=== PATIENT | female | born 1950 | race Caucasian/White ===

== ENCOUNTER 2019-07-08 07:35 | Outpatient (CLI) | payer BC, SELFPAY ==
--- NOTE | ~2019-07-08 | PE_ITS ---
EXAMINATION: PET skull to mid thigh DATE: 07/08/2019 10:39 INDICATION: Malignant neoplasm of the right breast. Patient underwent bilateral mastectomy with flap reconstruction in May 2019. Previous imaging reportedly demonstrated axillary lymphadenopathy an d a concerning internal mammary lymph node TECHNIQUE: Blood glucose level was 108 mg/dL. 10.095 mCi of 18-fluorodeoxyglucose (18-FDG) was admini stered i.v. Low dose computed tomography (CT) images were acquired from the base of the brain to the proximal thighs for attenuation correction and anatomic localization. Positron emission tomography (P ET) images were acquired in the same distribution beginning 69 minutes after injection. COMPARISON: None FINDINGS: Head/neck: No abnormal FDG uptake is identified. Physiologic uptake in the oral cavity and vocal cord s without suspicious CT correlate is noted. There are no pathologically enlarged neck lymph nodes. Chest: A right internal jugular Port-A-Cath ends with its tip in the midsuperior vena cava. There are changes of bilateral mastectomy. Minimal low level FDG uptake is seen in the reconstructions without evidence of focal activity to suggest recurrent malignancy. There is an approximately 3.1 x 1.5 cm a octavio of fluid density in the left axilla with low-level FDG uptake, also likely postoperative. No susp icious internal mammary lymph node is identified. The lungs are free of acute opacities. The heart si ze is normal. There is a group of tree-in-bud opacities in right upper lobe. No pleural effusion or p neumothorax is identified. Abdomen/pelvis/proximal thighs: Physiologic FDG activity is present in the bowel and urinary tract. N o abnormal FDG uptake is identified. The liver, spleen, pancreas, gallbladder, and adrenal glands are normal. The kidneys are unremarkable. No pathologically enlarged abdominal or pelvic lymph nodes are identified. There is no free intraperitoneal gas or evidence of bowel obstruction. Musculoskeletal: No abnormal FDG uptake is identified. IMPRESSION: 1. Changes of bilateral mastectomy, flap reconstruction, and axillary lymph node dissection without s uspicious FDG uptake identified. 2. Grouped tree-in-bud opacities of the right upper lobe, likely infectious or inflammatory. Reviewed, dictated and finalized at location A. ING SPECIALIST IMPRESSION: 1. Changes of bilateral mastectomy, flap reconstruction, and axillary lymph nod e dissection without suspicious FDG uptake identified. 2. Grouped tree-in-bud opacities of the right upper lobe, likely infectious or inflammatory.
[2019-07-08 08:03] LABS: Glucose Point of Care 108 (65-105)
== END 2019-07-08 07:36 | disposition home or self-care (01) ==
LOC: ANHIMG 07:42
PROVIDERS: PCP Internal Medicine; Visit Provider Internal Medicine Medical Oncology
DX: C50.911 Malignant neoplasm of unspecified site of right female breast (principal); Z90.13 Acquired absence of bilateral breasts and nipples
CPT/HCPCS: 78815; A9552

== ENCOUNTER 2020-05-02 07:32 | Outpatient (CLI) | payer BC, SELFPAY ==
--- NOTE | ~2020-05-02 | PE_ITS ---
EXAMINATION: PET skull to mid thigh DATE: 05/02/2020 11:26 INDICATION: Breast cancer TECHNIQUE: Blood glucose level was 120 mg/dL. 10.341 mCi of 18-fluorodeoxyglucose (18-FDG) was admini stered i.v. Low dose computed tomography (CT) images were acquired from the base of the brain to the proximal thighs for attenuation correction and anatomic localization. Positron emission tomography (P ET) images were acquired in the same distribution beginning 53 minutes after injection. The dose-isabelle th product (DLP) was 310.14 mGy-cm. COMPARISON: 07/18/2019 FINDINGS: Head/neck: No abnormal FDG uptake is identified. Physiologic uptake in the oral cavity and vocal cord s without suspicious CT correlate is again noted. No cervical lymphadenopathy is identified. Chest: There are changes of bilateral mastectomy with flap reconstructions. There is been interval de crease in size of a small area of fluid attenuation and FDG uptake in the region of the left axilla. No suspicious abnormal FDG uptake is identified. There are no pathologically enlarged thoracic lymph nodes. The heart size is normal. A right internal jugular Port-A-Cath ends with its tip in the midsup erior vena cava. Previously described tree-in-bud opacities of the right upper lobe have resolved, co nsistent with resolved infection/inflammation. Abdomen/pelvis/proximal thighs: Physiologic FDG activity is present in the bowel and urinary tract. N o abnormal FDG uptake is identified. The liver, spleen, pancreas, gallbladder, and adrenal glands are normal. The kidneys are unremarkable. No pathologically enlarged abdominal or pelvic lymph nodes are identified. There is no free intraperitoneal gas or evidence of bowel obstruction. Musculoskeletal: No abnormal FDG uptake is identified. There is moderate spondylosis of the cervical and thoracic spine. IMPRESSION: 1. Stable changes of bilateral mastectomy, flap reconstruction, and axillary lymph node dissection wi thout suspicious FDG uptake identified. Reviewed, dictated and finalized at location A. PROJECT MANAGER IMPRESSION: 1. Stable changes of bilateral mastectomy, flap reconstruction, and axillary ly mph node dissection without suspicious FDG uptake identified.
[2020-05-02 07:58] LABS: Glucose Point of Care 120 (65-105)
== END 2020-05-02 07:33 | disposition home or self-care (01) ==
LOC: ANHIMG 07:40
PROVIDERS: PCP Internal Medicine; Visit Provider Internal Medicine Medical Oncology
DX: C50.912 Malignant neoplasm of unspecified site of left female breast (principal); Z17.1 Estrogen receptor negative status [ER-]; Z90.13 Acquired absence of bilateral breasts and nipples
CPT/HCPCS: 78815; A9552

== ENCOUNTER 2020-10-09 07:58 | Outpatient (CLI) | payer BC, SELFPAY ==
--- NOTE | ~2020-10-09 | CT_ITS ---
EXAMINATION: CT chest abdomen pelvis w con DATE: 10/09/2020 08:39 INDICATION: History of breast cancer TECHNIQUE: Transaxial computed tomographic images of the chest, abdomen, and pelvis were obtained aft er the administration of 100 cc of Omnipaque 350 intravenous contrast. The dose-length product (DLP) was 402.52 mGy-cm. Automated exposure control and iterative reconstruction technique were employed. COMPARISON: PET/CT, 05/02/2020 FINDINGS: CHEST CT: The lungs are free of acute opacities. There is no pleural effusion or pneumothorax. There are change s of bilateral mastectomy. No pathologically enlarged thoracic lymph nodes are identified. The heart size is normal. Calcified coronary artery atherosclerosis is noted. There are bridging osteophytes at multiple levels in the spine, consistent with diffuse idiopathic skeletal hyperostosis (DISH). A rig ht-sided Port-A-Cath has been removed. ABDOMEN/PELVIS CT: The liver, spleen, pancreas, gallbladder, and adrenal glands are normal. The kidneys are unremarkable . No pathologically enlarged abdominal or pelvic lymph nodes are identified. There is no free intrape ritoneal gas or evidence of bowel obstruction. The appendix is normal. A small fat-containing umbilic al hernia is noted. There is moderate lumbar spondylosis. IMPRESSION: 1. No evidence of metastatic disease. Reviewed, dictated and finalized at location B.
[2020-10-09 08:24] LABS: Estimated Glomerular Filt Rate > 60
== END 2020-10-09 07:59 | disposition home or self-care (01) ==
LOC: ANHIMG 08:02
PROVIDERS: PCP Internal Medicine; Visit Provider Internal Medicine Medical Oncology
DX: C50.911 Malignant neoplasm of unspecified site of right female breast (principal); Z17.0 Estrogen receptor positive status [ER+]; C50.912 Malignant neoplasm of unspecified site of left female breast; Z17.1 Estrogen receptor negative status [ER-]; I70.0 Atherosclerosis of aorta
CPT/HCPCS: 71260; 74177; Q9967

== ENCOUNTER 2021-05-04 10:31 | Outpatient (CLI) | payer MEDICARE, SELFPAY ==
--- NOTE | ~2021-05-04 | CT_ITS ---
EXAMINATION: CT diagnostic chest w con DATE: 05/04/2021 11:09 INDICATION: Malignant neoplasm of the right breast TECHNIQUE: Transaxial computed tomographic images of the chest were obtained after the administration of 75 cc of Omnipaque 350 intravenous contrast. The dose-length product (DLP) was 191.86 mGy-cm. Ite rative reconstruction was used. COMPARISON: 10/09/2020 FINDINGS: There are changes of bilateral mastectomy and axillary lymph node dissection. The lungs are free of acute opacities. A stable 2 mm nodule of the right lung apex is consistent with old granulom atous disease. There is no pleural effusion or pneumothorax. No pathologically enlarged thoracic lymp h nodes are identified. The heart size is normal. There are bridging osteophytes at multiple levels i n the spine, consistent with diffuse idiopathic skeletal hyperostosis (DISH). IMPRESSION: 1. No evidence of metastatic disease. Reviewed, dictated and finalized at location B.
[2021-05-04 11:01] LABS: Estimated Glomerular Filt Rate > 60
== END 2021-05-04 10:32 | disposition home or self-care (01) ==
LOC: ANHIMG 10:35
PROVIDERS: PCP Internal Medicine; Visit Provider Internal Medicine Medical Oncology
DX: C50.911 Malignant neoplasm of unspecified site of right female breast (principal); Z17.0 Estrogen receptor positive status [ER+]
CPT/HCPCS: 71260; Q9967

== ENCOUNTER 2021-08-06 10:46 | Outpatient (CLI) | payer MEDICARE, SELFPAY ==
--- NOTE | ~2021-08-06 | CT_ITS ---
EXAMINATION:CT diagnostic chest w con DATE: 08/06/2021 11:21 INDICATION: Malignant neoplasm of right breast. TECHNIQUE: Computed tomography (CT) of the chest was performed with 75 mL Omnipaque 350 intravenous c ontrast. Automated exposure control and iterative reconstruction technique were employed. The dose-le ngth product (DLP) was 151.67 mGy-cm. COMPARISON: Chest CT 05/04/2021 FINDINGS: The lungs demonstrate mild atelectasis. No pleural effusion. No pleural effusion. The heart size is normal. No pericardial effusion. There are surgical clips in the axillae. There are surgical clips in left anterior chest wall. There are bilateral mastectomies. There are bridging endplate ost eophytes at multiple levels in the spine, consistent with diffuse idiopathic skeletal hyperostosis (D MALCOLM). IMPRESSION: 1. No evidence of metastatic disease. Reviewed, dictated and finalized at location E. E TESTER
[2021-08-06 11:17] LABS: Estimated Glomerular Filt Rate > 60
== END 2021-08-06 10:47 | disposition home or self-care (01) ==
PROVIDERS: PCP Internal Medicine; Visit Provider Internal Medicine Medical Oncology
DX: C50.911 Malignant neoplasm of unspecified site of right female breast (principal); Z17.0 Estrogen receptor positive status [ER+]
CPT/HCPCS: 71260; Q9967

== ENCOUNTER 2022-04-05 08:28 | Outpatient (CLI) | payer MEDICARE, BC, SELFPAY ==
--- NOTE | ~2022-04-05 | CT_ITS ---
EXAMINATION:CT diagnostic chest w con DATE: 04/05/2022 09:36 INDICATION: Malignant neoplasm of left breast. TECHNIQUE: Computed tomography (CT) of the chest was performed with 75 mL Omnipaque 350 intravenous c ontrast. Automated exposure control and iterative reconstruction technique were employed. The dose-le ngth product (DLP) was 140.14 mGy-cm. COMPARISON: Chest CT 08/06/2021 FINDINGS: There is mild dependent atelectasis bilaterally. No pleural effusion. The heart size is nor mal. There are coronary artery calcifications. No pericardial effusion. There are surgical clips in t he axillae bilaterally. There are no pathologically enlarged lymph nodes. There are bilateral mastect omies. There is a surgical clip in left anterior chest wall. There are bridging endplate osteophytes at multiple levels in the spine, consistent with diffuse idiopathic skeletal hyperostosis (DISH). The re is kyphosis of thoracic spine. There is severe cervical spondylosis. IMPRESSION: 1. No evidence of metastatic disease. Reviewed, dictated and finalized at location B.
--- NOTE | ~2022-04-05 | DEXA_ITS ---
Bone Density Report Name: BHARGAV STORY Age: 71 Sex: Female Ethnicity: White Date of : 1950 Indication: postmenopausal; screening for osteoporosis; cancer; Referring Provider: JETHRO, MISSAEL Ojeda Study: Bone densitometry was performed. Exam Date: April 05, 2022 Accession number: [id number] Bone Density: Region BMD T-score Z-score Classification AP Spine(L1, L2, L3) 1.039 0.2 2.4 Normal Femoral Neck (Left) 0.641 -1.9 0.1 Osteopenia Total Hip (Left) 0.773 -1.4 0.3 Osteopenia Femoral Neck (Right) 0.637 -1.9 0.1 Osteopenia Total Hip (Right) 0.743 -1.6 0.1 Osteopenia Total Hip Mean 0.758 -1.5 0.2 Osteopenia World Health Organization criteria for BMD impression classify patients as: Normal (T-score at or above -1.0), Osteopenia (T-score between -1.0 and -2.5), or Osteoporosis (T-score at or below -2.5). 10-year Fracture Risk(1): Major Osteoporotic Fracture 12% Hip Fracture 2.6% Reported Risk Factors: [place] (), Neck BMD=0.641, BMI=25.4 (1) FRAX(R) Version 3.08. Fracture probability calculated for an untreated patient. Fracture probability may be lower if the patient has received treatment. Clinical Information Provided by Patient: Has the following medical conditions: Cancer Patient maximum height was 60 Menopause Age: 48 No regular weight bearing exercise Onset of menses at age 10 Number of children 2 Impression: The patient has low bone mass, based on the Left Femoral Neck T-score. The patient has an estimated ten-year risk of hip fracture of 2.6% and an estimated ten-year risk of major fracture of 12%, based on the WHO FRAX algorithm. Discussion: BONE DENSITY IS LOW AT ONE OR MORE SKELETAL SITES. This patient's lowest T-score is low at one or more skeletal sites. It meets the World Health Organization's (WHO) criteria for ?low bone mass? (T-score between -1.0 and -2.5). The patient's 10-year risk of fracture as calculated by FRAX is less than the threshold where pharmacological therapy is recommended by the National Osteoporosis Foundation (NOF). However, all treatment decisions require clinical judgment and consideration of individual patient factors, including patient preferences, comorbidities, previous drug use, risk factors not captured in the FRAX model (e.g., frailty, falls, vitamin D deficiency, increased bone turnover, interval significant decline in bone density) and possible under or overestimation of fracture risk by FRAX. The patient should follow a healthful lifestyle (good nutrition with adequate calcium and vitamin D, and appropriate weight-bearing exercise). Follow-Up: Consider repeating this study in 2 to 3 years to reassess this patient's status, or sooner if there is some new clinical indication. Reported by: [facility] on 04/05/2022 9:03:00 AM.
[2022-04-05 09:32] LABS: Estimated Glomerular Filt Rate > 60
== END 2022-04-05 08:29 | disposition home or self-care (01) ==
PROVIDERS: PCP Internal Medicine; Visit Provider Internal Medicine Medical Oncology
DX: C50.919 Malignant neoplasm of unspecified site of unspecified female breast (principal); Z78.0 Asymptomatic menopausal state; Z17.1 Estrogen receptor negative status [ER-]; M85.851 Other specified disorders of bone density and structure, right thigh; M85.852 Other specified disorders of bone density and structure, left thigh; I25.10 Atherosclerotic heart disease of native coronary artery without angina pectoris; Z90.13 Acquired absence of bilateral breasts and nipples; M47.812 Spondylosis without myelopathy or radiculopathy, cervical region
CPT/HCPCS: 71260; 77080; Q9967

== ENCOUNTER 2022-10-04 12:18 | Outpatient (CLI) | payer MEDICARE, SELFPAY ==
--- NOTE | ~2022-10-04 | CT_ITS ---
EXAMINATION: CT diagnostic chest w con DATE: 10/04/2022 13:55 INDICATION: History of left breast cancer TECHNIQUE: Transaxial computed tomographic images of the chest were obtained after the administration of 75 cc of Omnipaque 350 intravenous contrast. The dose-length product (DLP) was 186.51 mGy-cm. Ite rative reconstruction was used. COMPARISON: 04/05/2022 FINDINGS: There are changes of bilateral mastectomy and axillary lymph node dissection. There is mild dependent atelectasis. No pleural effusion or pneumothorax. No pathologically enlarged thoracic lymp h nodes are identified. The heart size is normal. There is a small sliding hiatal hernia. There are b ridging osteophytes at multiple levels in the spine, consistent with diffuse idiopathic skeletal hype rostosis (DISH). IMPRESSION: 1. No evidence of metastatic disease. Reviewed, dictated and finalized at location A.
== END 2022-10-04 12:19 | disposition home or self-care (01) ==
PROVIDERS: PCP Internal Medicine; Visit Provider Internal Medicine Medical Oncology
DX: C50.912 Malignant neoplasm of unspecified site of left female breast (principal)
CPT/HCPCS: 71260; Q9967

== ENCOUNTER 2023-04-04 07:25 | Outpatient (CLI) | payer MEDICARE, SELFPAY ==
--- NOTE | ~2023-04-04 | CT_ITS ---
Clinical Indication: Breast cancer CT Scan of the Chest with Contrast: Technique: Contiguous sections were acquired throughout the chest after intravenous administration of 75 cc of Omnipaque 350. Dose reduction technique was used on this scan by utilizing automated exposu re control and iterative reconstruction technique. The dose-length product (DLP) was 418.59 mGy-cm. COMPARISON: 10/04/2022 Findings: There is no evidence of any significant mediastinal, hilar or axillary lymphadenopathy. Mediastinal s oft tissues and vascular structures are unremarkable. Evidence of probable bilateral mastectomy with surgical clips the bilateral axillary regions. There is no evidence of pleural or pericardial effusion. The lungs are clear. No pulmonary nodules or infiltrates are noted. Images through the upper abdomen reveal no abnormalities. Impression: No evidence for active malignancy or metastatic disease. Prior bilateral mastectomy. Reviewed, dictated and finalized at location . Impression: No evidence for active malignancy or metastatic disease. Prior bilateral mastectomy.
[2023-04-04 07:52] LABS: Estimated Glomerular Filt Rate > 60
== END 2023-04-04 07:26 | disposition home or self-care (01) ==
PROVIDERS: PCP Internal Medicine; Visit Provider Internal Medicine Medical Oncology
DX: C50.912 Malignant neoplasm of unspecified site of left female breast (principal); Z17.1 Estrogen receptor negative status [ER-]; Z90.13 Acquired absence of bilateral breasts and nipples
CPT/HCPCS: 71260; Q9967

== ENCOUNTER 2023-10-03 06:33 | Outpatient (CLI) | payer MEDICARE, SELFPAY ==
--- NOTE | ~2023-10-03 | CT_ITS ---
EXAMINATION:CT diagnostic chest w con DATE: 10/03/2023 07:20 INDICATION: Malignant neoplasm of left breast. TECHNIQUE: Computed tomography (CT) of the chest was performed with 75 mL Omnipaque 350 intravenous c ontrast. Automated exposure control and iterative reconstruction technique were employed. The dose-le ngth product (DLP) was 149.07 mGy-cm. COMPARISON: Chest CT 04/04/2023 FINDINGS: The lungs demonstrate mild atelectasis. There is a stable 2 mm nodule in right upper lobe, likely benign. No pleural effusion. The heart size is normal. There are coronary artery calcification s. No pericardial effusion. There are surgical changes in left breast and left axilla and right axill a. There are bridging endplate osteophytes at multiple levels in the spine, consistent with diffuse i diopathic skeletal hyperostosis (DISH). There is kyphosis of thoracic spine. IMPRESSION: 1. No evidence of malignancy. Reviewed, dictated and finalized at location A.
[2023-10-03 07:12] LABS: Estimated Glomerular Filt Rate > 60
== END 2023-10-03 06:34 | disposition home or self-care (01) ==
PROVIDERS: PCP Internal Medicine; Visit Provider Internal Medicine Medical Oncology
DX: C50.912 Malignant neoplasm of unspecified site of left female breast (principal); Z17.1 Estrogen receptor negative status [ER-]
CPT/HCPCS: 71260; Q9967

== ENCOUNTER 2024-04-02 06:50 | Outpatient (CLI) | payer MEDICARE, SELFPAY ==
--- NOTE | ~2024-04-02 | CT_ITS ---
Clinical Indication: Breast cancer CT Scan of the Chest with Contrast: Technique: Contiguous sections were acquired throughout the chest after intravenous administration of 75 cc of Omnipaque 350. Dose reduction technique was used on this scan by utilizing automated exposu re control and iterative reconstruction technique. The dose-length product (DLP) was 163.79 mGy-cm. COMPARISON: 10/03/2023 Findings: There is no evidence of any significant mediastinal, hilar or axillary lymphadenopathy. There is no f illing defect in the pulmonary arterial tree to suggest pulmonary embolus. There is no evidence of ao rtic dissection or aneurysm. Small pericardial effusion noted. No pleural effusions. The lungs are clear. No pulmonary nodules or infiltrates are noted. Images through the upper abdomen reveal probable diffuse hepatic steatosis and probable duodenal dive rticulum. Impression: No evidence of metastatic disease. Clear lungs. Reviewed, dictated and finalized at [facility]. Impression: No evidence of metastatic disease. Clear lungs.
[2024-04-02 07:17] LABS: Estimated Glomerular Filt Rate > 60
== END 2024-04-02 06:51 | disposition home or self-care (01) ==
PROVIDERS: PCP Internal Medicine; Visit Provider Internal Medicine Medical Oncology
DX: C50.912 Malignant neoplasm of unspecified site of left female breast (principal); Z17.1 Estrogen receptor negative status [ER-]
CPT/HCPCS: 71260; Q9967

== ENCOUNTER 2024-09-28 06:37 | Outpatient (CLI) | payer MEDICARE, SELFPAY ==
--- NOTE | ~2024-09-28 | CT_ITS ---
Clinical Indication: Breast cancer restaging CT Scan of the Chest with Contrast: Technique: Contiguous sections were acquired throughout the chest after intravenous administration of 75 cc of Omnipaque 350. Dose reduction technique was used on this scan by utilizing automated exposu re control and iterative reconstruction technique. The dose-length product (DLP) was 134.12 mGy-cm. COMPARISON: 04/02/2024 Findings: There is no evidence of any significant mediastinal, hilar or axillary lymphadenopathy. There is no f illing defect in the pulmonary arterial tree to suggest pulmonary embolus. There is no evidence of ao rtic dissection or aneurysm. There is no evidence of pleural or pericardial effusion. The lungs are clear. No pulmonary nodules or infiltrates are noted. Images through the upper abdomen reveal no abnormalities. Impression: No evidence of metastatic disease in the chest. Reviewed, dictated and finalized at [facility]. Impression: No evidence of metastatic disease in the chest.
--- OUTSIDE RECORDS SUMMARY | 2024-09-28 06:40 | XMS_ITS ---
Author Organization [facility] Healthcare Address [address] [place] [id number] Care Team Providers Care Feather Cutting Machine Feeder Name Role Phone Dima Barber DO Unavailable [phone] Pietro Scott MD Unavailable [phone] Joe Li MD Primary Care Provider [phone] Active Problems Problem Noted Date Diagnosed Date Metastatic breast cancer 05/01/2020 Encounter for management of implanted device 06/2018 Malignant neoplasm of left b reast in female, estrogen receptor negative 11/19/2018 Cancer Staging:Clinical stage from 11/20/2018:Stage IIIC(cT2, cN3b, cM0, G3, ER-, ND-, HER2-) - Signed by Dima Barber DO on 11/22/2018 Malignant neoplasm of right breast in female, estrogen receptor positive 11/19/2018 Cancer Staging:Clinical stage from 11/20/2018:Stage IA(cT1b, cN0(f), cM0, G1, ER+, ND+, HER2-) - Signed by Dima Barber DO on 11/22/2018 Current Treatment and Therapy Plans No current plan information found. Past Treatment and Therapy Plans Oncology Chemotherapy Treatment Plan Name Start Date Discontinue Date Treatment Medications Discontinue Reason Plan Provider Cycles Dose-Dense AC: DOXOrubicin (ADRIAMYCIN) / Cyclophosphamide 14 Day Cycles followed by: Dose-Dense PACLItaxel 14 Day Cycles - Breast 11/27/19 19 05/03/2019 cycloPHOSphamide (CYTOXAN) IVPB (vial 20 mg/mL) ([id number])DOXOrubicin (ADRIAMYCIN) 2 mg/mLPACLitaxel (TAXOL)PACLItaxel (TAXOL) IVPB in 500 mL Therapy Complete Elisabeth, Dima L., DO 8 of 8 cycles started Lifetime Dose Tracking * Chemical Lifetime Dose Automatic Entry Manual Entr y doxorubicin 242.637 mg/m2 (298.8 mg) 242.637 mg/m2 (298.8 mg) 0 mg/m2 (0 mg) cyclophosphamide 2,426.371 mg/m2 (2,988 mg) 2,426.371 mg/m2 (2,988 mg) 0 mg/m2 (0 mg) doxorubicin isotoxic equivalent (Please manually verify calculation) 242.637 mg/m2 (298.8 mg) 242.637 mg/m2 (298.8 mg) 0 mg/m2 (0 mg) Resolved Problems Problem Noted Date Diagnosed Date Resolved Date Persons encountering health services in other specified circumstances 11/24/2018 09/06/2020
--- OUTSIDE RECORDS SUMMARY | 2024-09-28 06:40 | XMS_ITS | Referral Summary ---
Author Organization [facility] Healthcare Address [address] [place] [address] Care Team Providers Care Call Worker Person Name Role Phone Dima Barber DO Unavailable [phone] Pietro Scott MD Unavailable [phone] Joe Li MD Primary Care Provider + [phone] Encounters Date Type Department Care Team Description 07/22/2024 Orders Only [facility] [address] [place] [address] Unknown, Notinfile from Last 3 Months Allergies No known active allergies Medications aspirin 81 mg chewable tablet Take by mouth daily Active multivit with minerals/lutein (MULTIVITAMIN 50 PLUS ORAL) multivitamin Act delfino rosuvastatin (CRESTOR) 40 mg tablet 1 tablet (40 mg total) 1 Active metFORMIN (GLUCOPHAGE) 500 mg tablet Take 1 tablet (500 mg total) by mouth daily 4 Active clopidogreL (PLAVIX) 75 mg tablet Take 1 tablet (75 mg total) by mouth daily 4 Active Active Problems Problem Noted Date Diagnosed Date Metastatic breast cancer 05/01/2020 Encounter for management of implanted device 06/2018 Malignant neoplasm of left b reast in female, estrogen receptor negative 11/19/2018 Cancer Staging:Clinical stage from 11/20/2018:Stage IIIC(cT2, cN3b, cM0, G3, ER-, TX-, HER2-) - Signed by Dima Barber DO on 11/22/2018 Malignant neoplasm of right breast in female, estrogen receptor positive 11/19/2018 Cancer Staging:Clinical stage from 11/20/2018:Stage IA(cT1b, cN0(f), cM0, G1, ER+, TX+, HER2-) - Signed by Dima Barber DO on 11/22/2018 Resolved Problems Problem Noted Date Diagnosed Date Resolved Date Persons encountering health services in other specified circumstances 11/24/2018 09/06/2020 Immunizations Immunization Administration Dates Next Due Influenza, Unspecified 04/07/2023,2021,04/10/2021,2019,05/05/2019 Pfizer SARS-CoV-2 Monovalent Vaccination (12+ Yrs) PURPLE 05/06/2022,06/03/2021,09/29/2020,2020 Pneumococcal Conjugate PCV 13 06/30/2016 ZOSTER LIVE 06/30/2013 Social History Tobacco Use Types Packs/Day Years Used Date Smoking Tobacco: Never Smokeless Tobacco: Never Alcohol Use Standard Drinks/Week Comments Not Currently 0 (1 standard drink = 0.6 oz pur e alcohol) AUDIT-C Answer Date Recorded Q1: How often do you have a drink containing alcohol? Never 04/09/2024 Q2: How many drinks containi ng alcohol do you have on a typical day when you are drinking? Patient does not drink Q3: How often do you have si x or more drinks on one occasion? 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 file Not on file Not on file Last Filed Vital Signs Vital Sign Reading Time Taken Comments Blood Pressure 108/72 04/09/2024 8:49 AM CDT Pulse 98 04/09/2024 8:49 AM CDT Temperature 36.4 C (97.6 F) 04/09/2024 8:49 AM CDT Respiratory Rate 18 04/09/2024 8:49 AM CDT Oxygen Saturation 96% 04/09/2024 8:49 AM CDT Inhaled Oxygen Concentration - - Weight 55.9 kg (123 lb 3.8 oz) 04/09/2024 8:49 A M CDT no shoes Height 148.6 cm (4' 10.5 ) 04/11/2023 9:28 AM CD T Body Mass Index 25.32 04/11/2023 9:28 AM CDT Plan of Treatment Not on file Medical Devices Implanted Type Area Lens Assistant Device Identifier Shelf Expiration Date Model / Serial / Lot Pac Right: Chest Procedures Procedure Name Priority Date/Time Associated Diagnosis Comments CEA Routine 09/27/2024 9:46 AM CDT Malignant neoplasm of left breast in female, estrogen receptor negative, unspecified site of breast (HCC) COMPREHENSIVE METABOLIC PANEL Routine 09/27/2024 9:46 AM CDT Malignant neoplasm of left breast in female, estrogen receptor negative, unspecified site of breast (HCC) CBC WITH AUTO DIFFERENTIAL Routine 09/27/2024 9:46 AM CDT Malignant neoplasm of left breast in female, estrogen receptor negative, unspecified site of breast (HCC) SURGICAL PATHOLOGY Routine 07/22/2024 12 :00 AM PRODUCTION CLERKS SUPERVISOR from Last 3 Months Results * (ABNORMAL) CBC with auto differential (09/27/2024 9:46 AM CDT) WBC 9.4 3.8 - 10.8 Thousand/u L [facility] RBC, POC 5.20(H) 3.80 - 5.10 Million/uL [facility] Hgb 14.7 11.7 - 15.5 g/dL [facility] Hct 46.6(H) 35.0 - 45.0 % [facility] MCV 89.6 80.0 - 100.0 fL [facility] MCH 28.3 27.0 - 33.0 pg [facility] MCHC 31.5(L) 32.0 - 36.0 g/dL [facility] Comment: For adults, a slight decrease in the calculated MCHC value (in the range of 30 to 32 g/dL) is most likely not clinically significant; however, it should be interpreted with caution in correlation with other red cell parameters and the patient's clinical condition. Rdw 13.1 11.0 - 15.0 % [facility] Platelets 299 140 - 400 Thousand/u L [facility] MPV 8.9 7.5 - 12.5 fL [facility] Neutrophils, abs 6,655 1,500 - 7,800 cells/uL [facility] Lymphocytes, abs 2,143 850 - 3,900 cells/uL [facility] Monocyte abs 536 200 - 950 cells/uL [facility] Eosinophils, abs 47 15 - 500 cells/uL [facility] Basophils, abs 19 0 - 200 cells/uL [facility] Neutrophils 70.8 % [facility] Lymphocyte pct 22.8 % [facility] Monocytes 5.7 % [facility] Eosinophils 0.5 % [facility] Basophils 0.2 % [facility] Blood 09/27/2024 9:46 AM CDT 09/27/2024 9:47 AM CDT Narrative [email or web address] - 09/28/2024 4:44 AM CDT FASTING:YES FASTING: YES Dima Barber [employer] LAB BLOOD ORDERABLES Final R ARtunes Radio Performing Organization Address [facility] de Phone Number [facility] [address] [place] [address] * CEA (09/27/2024 9:46 AM CDT) [facility] CEA <2.0 See Note: ng/mL [employer] [facility] Comment: Reference Range: Non-Smoker: <2.5 Smoker: <5.0 This test was performed using the Siemens chemiluminescent method. Values obtained from different assay methods cannot be used interchangeably. CEA levels, regardless of value, should not be interpreted as absolute evidence of the presence or absence of disease. Blood 09/27/2024 9:46 AM CDT 09/27/2024 9:47 AM CDT Narrative [facility] - 09/28/2024 4:44 AM CDT FASTING:YES FASTING: YES Dima Barber DO LAB BLOOD ORDERABLES Final R esFlythegap Performing Organization Address [facility] Co de Phone Number [email or web address] [facility] [address] [address] [phone] * (ABNORMAL) Comprehensive metabolic panel (09/27/2024 9:46 AM CDT) Glucose 121(H) 65 - 99 mg/dL [facility] Comment: Fasting reference interval For someone without known diabetes, a glucose value between 100 and 125 mg/dL is consistent with prediabetes and should be confirmed with a follow-up test. BUN 12 7 - 25 mg/dL [facility] Creatinine 0.69 0.60 - 1.00 mg/dL [facility] eGFR 90 > OR = 60 mL/min/1.7 3m2 [facility] BUN/creat ratio SEE NOTE: 6 - 22 (calc) [facility] Comment: Not Reported: BUN and Creatinine are within reference range. Sodium 139 135 - 146 mmol/L [facility] Potassium, pl 4.1 3.5 - 5.3 mmol/L [facility] Chloride 104 98 - 110 mmol/L [facility] CO2 28 20 - 32 mmol/L [facility] Calcium 10.0 8.6 - 10.4 mg/dL [facility] Protein, sr 7.1 6.1 - 8.1 g/dL [facility] mSith Albumin 4.2 3.6 - 5.1 g/dL [facility] GLOBULIN 2.9 1.9 - 3.7 g/dL (calc) [facility] Alb/glob ratio 1.4 1.0 - 2.5 (calc) [facility] Bilirubin, total 0.5 0.2 - 1.2 mg/dL [facility] Alk phos 50 37 - 153 U/L [facility] AST 18 10 - 35 U/L [facility] ALT (SGPT) 15 6 - 29 U/L [facility] Blood 09/27/2024 9:46 AM CDT 09/27/2024 9:47 AM CDT Narrative [facility] - 09/28/2024 4:44 AM CDT FASTING:YES FASTING: YES Dima Lynette Barber DO LAB BLOOD ORDERABLES Final R esult [facility] [address] [place] [address] * Surgical pathology (07/22/2024 12:00 AM PRODUCTION CLERKS SUPERVISOR) Skin, shave biopsy 07/22/2024 07/23/2024 5:10 AM PRODUCTION CLERKS SUPERVISOR Narrative 07/26/2024 1:09 PM PRODUCTION CLERKS SUPERVISOR EPIC results best viewed via link to PDF [facility] [facility], [address], [place] [address] [email or web address] Note to Patients: This report may contain a detailed description of human tissue sent by a health care provider to the laboratory for pathologic evaluation. The content of this report is essential for diagnosis and may provide important critical findings. This information may be unfamiliar to patients to review without a medical professional present. It is advised that the patient review this report in the presence of a health care provider who can answer questions and explain the details. FINAL REPORT Patient Information: PATIENT NAME: BHARGAV GARDINER SEX: F : 1950 (Age: 73) Specimen Information: COLLECTED: 07/22/2024 RECEIVED: 07/23/2024 REPORTED: 07/26/2024 Submitting Physician Information: Hanna Farrell SADDLE STITCH OPERATOR- [facility], [address] [place] [address], DERMATOPATHOLOGY REPORT RESULTS DIAGNOSIS: A. SKIN, RIGHT NASAL SIDEWALL, SHAVE BIOPSY: SQUAMOUS CELL CARCINOMA IN SITU B. SKIN, RIGHT SUPRAPUBIC SKIN, SHAVE BIOPSY: COMPOUND MELANOCYTIC NEVUS C. SKIN, LEFT GLUTEAL CREASE, SHAVE BIOPSY: FIBROMA brenda/lac By this signature, I attest that the above diagnosis is based upon my personal examination of the slides(and/or other material indicated in the diagnosis). Olga Jain M.D. Report Electronically Reviewed and Signed Out By Olga Jain M.D. 07/26/2024 13:09:01 CLINICAL INFORMATION A. NEOPLASM OF UNCERTAIN BEHAVIOR VS IRRITATED SEBORRHEIC KERATOSIS VS SCC B. NEOPLASM OF UNCERTAIN BEHAVIOR C. NEOPLASM OF UNCERTAIN BEHAVIOR VS IRRITATED ACROCHORDON SPECIMEN DATA MICROSCOPIC DESCRIPTION: A. Atypical keratinocytes are present throughout the entire thickness of the epidermis. (D04.9) B. Enlarged monomorphous melanocytes are arranged as solitary units and nests at the dermo-epidermal junction and as uniform nests, cords and strands within the dermis. (D22.9) C. This dome-shaped papule contains haphazardly arranged, thickened collagen bundles, a proliferation of plump fibroblasts and dilated blood vessels. (D23.9) GROSS DESCRIPTION: A. Received in a formalin-containing bottle is a superficial fragment of pale galo, finely scaling, and semi-translucent skin measuring 0.3 by 0.3 by 0.1 cm. The surgical margin is inked blue. The specimen is sectioned into 2 pieces and submitted entirely in a single cassette. Due to shrinkage, measurements may be different than those at the time of procedure. B. Received in a formalin-containing bottle is a superficial fragment of pale galo, finely scaling, and semi-translucent skin measuring 0.4 by 0.2 by 0.1 cm. The surgical margin is inked blue. The specimen is sectioned into 2 pieces and submitted entirely in a single cassette. Due to shrinkage, measurements may be different than those at the time of procedure. C. Received in a formalin-containing bottle are two superficial fragments of pale galo, slightly wrinkled, and rubbery skin measuring 0.6 by 0.6 by 0.2 cm and 0.6 by 0.2 by 0.1 cm. The surgical margins are inked blue. The larger piece is sectioned into 2 pieces. The specimen is submitted entirely in a single cassette. Due to shrinkage, measurements may be different than those at time of procedure. ag/dxv ICD-9 ZSD.407 ZSD.1474 Clerical Data A; 91619 B; 32339 C; 99782 The characteristics of special, immunohistochemical, and immunofluorescence stains and in-situ hybridization tests performed by the [facility] were deemed acceptable in ongoing quality process engineer measures and in compliance with regulations drawn from the Clinical Laboratory Improvement Act sp4023 (CLIA '88). Control reactions for all stains performed were deemed adequate and appropriate by a pathologist prior to evaluation of patient tissue. Some diagnoses were rendered with the assistance of laboratory-developed tests utilizing analyte-specific reagents; the performance characteristic of these tests were determined by [facility] and are not cleared or approved by the [place] Food an Drug administration. Laboratory developed test may only be performed in a facility that is certified by the [facility] as a high-complexity laboratory under CLIA '88. These tests are used for clinical purposes and are not investigational. us Notinfile Unknown LAB PATHOLOGY ORDERABLES Final Result from Last 3 Months Insurance [employer] MEDIC[employer] PPO Care Teams Call Worker Person Relationship Specialty Start Date End Date Joe Li MD [address] [address] PCP - General Internal Medicine 10/10/23 Dima Barber DO [address] [place] [id number] Medical Oncologist/Special Event Assistant Hematology and Oncology 12/09/18 Pietro Scott MD [address] [place] [address] Referring Physician Radiation Oncology 12/13/19
--- OUTSIDE RECORDS SUMMARY | 2024-09-28 06:40 | XMS_ITS | CONTINUITY OF CARE DOCUMENT ---
Author Name sandra flores Address Unknown Organization [facility] Address [address] [place] [address] Phone [phone] Care Team Providers Care Paper Goods Machine Operator Name Role Phone Santana STORM, Cruz Unavailable SYED JOSUE MD Unavailable BARAK GONZALEZ MD Unavailable [phone] PROBLEMS Condition Status Date Provider Notes CAD--cath 02/2024 nelida 2.25 x 26 Nome stent to OM1 active Cruz Dillon MD Hx of breast cancer s/p bila t mastectomy, chemo, radiation active Cruz Dillon MD Cardiology examination active Cruz Dillon MD Diabetes mellitus, type 2 active Cruz soto MD Ischemic cardiomyopathy active Cruz Dillon MD ENCOUNTERS Date Type Provider Location Encounter Diag nosis - In-person encounter Office Visit Cruz Dillon MD [facility] - In-person encounter Office Visit Cruz Dillon MD [facility] - In-person encounter Office Visit Cruz Dillon MD [facility] CAD--cath 02/2024 nelida 2.25 x 26 Nel[place] stent to OM1Hx of breast cancer s/p bilat mastectomy, chemo, radiationCardiology examinationDiabetes mellitus, type 2Ischemic cardiomyopathy VITAL SIGNS Date Observation Value Provider Body Mass Index (Ratio) 24.44 kg/m2 James Dillon MD blood pressure, diastolic 71 mm[Hg] Guera Martínez blood pressure, systolic 108 mm[Hg] Ольга Martínez pulse rate 77 /min Sandra santos oxygen saturation, oximetry 98 % Sandra Martínez weight E&M 121 [lb_av] Sandra santos blood pressure, cuff size regular Guera Martínez height E&M 59 [in_i] Sandra santos Body Mass Index (Ratio) 24.44 kg/m2 James Dillon MD blood pressure, diastolic 69 mm[Hg] Jyoti samaniego Garcia blood pressure, systolic 114 mm[Hg] Ritu ness Garcia oxygen saturation, oximetry 97 % [facility] 77 /min [facility] respiratory rate E&M 12 /min [facility] weight E&M 121 [lb_av] [facility] height E&M 59 [in_i] [facility] blood pressure, cuff size regular [facility] Body Mass Index (Ratio) 24.92 kg/m2 Jose ntha Cranmer blood pressure, diastolic 85 mm[Hg] Li nkLogic blood pressure, systolic 107 mm[Hg] Viktoria kLogic respiratory rate E&M 18 /min Jatinderaron Lopez blood pressure, cuff size regular Ky tuan Lopez blood pressure, diastolic 85 mm[Hg] Ky tuan Lopez blood pressure, systolic 107 mm[Hg] Pilar jacob Lopez oxygen saturation, oximetry 99 % Kyaron Lopez pulse rate 84 /min Kyaron Lopez weight E&M 123.4 [lb_av] Ting Lopez height E&M 59 [in_i] Ting Lopez ALLERGIES No Known Drug Allergies RESULTS Date Observation Value Provider Reference Range Interpretation Location 0 hemoglobin A1C, blood, as % of total hemoglobin 6.7 % OF TOTAL HGB [facility] <5.7 High 0 ferritin, serum 120 ng/mL [facility] 16-288 Normal 0 basophils as percent of blood leukocytes 0.4 % [facility] Normal 0 eosinophils as percent of blood leukocytes 2.8 % [facility] Normal 0 monocyte count, blood 8.2 % [facility] Normal 0 lymphocyte count, blood 24.7 % [facility] Normal 0 neutrophils as percent of blood leukocytes 63.9 % [facility] Normal 0 basophils, absolute, manual 33 cells/mcL [facility] 0-200 Normal 0 eosinophils, absolute, manual 232 cells/mcL [facility] 15-500 Normal 0 monocytes, absolute, manual 681 cells/mcL [facility] 200-950 Normal 0 lymphocytes, absolute 2050 CELLS/UL [facility] 850-3900 Normal 0 Absolute Neutrophil count 5304 cells/mcL [facility] 1352-1180 Normal 0 mean platelet volume 9.2 fL [facility] 7.5-12.5 Normal 0 platelet count 234 THOUSAND/ UL [facility] 140-400 Normal 0 red blood cell distribution width 13.5 % [facility] 11.0-15.0 Normal 0 mean corpuscular hemoglobin concentration, RBC 31.2 G/DL [facility] 32.0-36.0 Low 0 mean corpuscular hemoglobin, RBC 28.0 pg [facility] 27.0-33.0 Normal 0 mean corpuscular volume, RBC 89.7 fL [facility] 80.0-100.0 Normal 0 hematocrit, blood 47.1 % [facility] 35.0-45.0 High 0 hemoglobin electrophoresis, blood 14.7 [facility] 11.7-15.5 Normal 0 erythrocyte (RBC) count 5.25 MILLION/U L [facility] 3.80-5.10 High 0 leukocyte (white blood cells) count, blood 8.3 THOUSAND/ UL [facility] 3.8-10.8 Normal 0 alanine aminotransferase (SGPT), serum 20 1/L [facility] 6-29 Normal 0 aspartate aminotransferase (SGOT), serum 23 1/L [facility] 10-35 Normal 0 alkaline phosphatase, serum 54 1/L [facility] 37-153 Normal 0 bilirubin, serum, total 0.7 mg/dL [facility] 0.2-1.2 Normal 0 albumin/globulin ratio, serum 1.6 (calc) [facility] 1.0-2.5 Normal 0 globulins, serum, total 2.7 G/DL (CALC) [facility] 1.9-3.7 Normal 0 albumin, serum 4.4 g/dL [facility] 3.6-5.1 Normal 0 protein, total, serum 7.1 g/dL [facility] 6.1-8.1 Normal 0 calcium, serum 10.0 mg/dL [facility] 8.6-10.4 Normal 0 carbon dioxide, venous blood 29 mmol/L [facility] 20-32 Normal 0 chloride, serum 102 mmol/L [facility] 98-110 Normal 0 potassium, serum 3.9 mmol/L [facility] 3.5-5.3 Normal 0 sodium, serum 139 mmol/L [facility] 135-146 Normal 0 urea nitrogen/creatinine ratio, serum SEE NOTE: (calc) [facility] 6-22 0 creatinine, serum 0.91 mg/dL [facility] 0.60-1.00 Normal 0 urea nitrogen, blood 14 mg/dL [facility] 7-25 Normal 0 blood glucose, random 112 mg/dL [facility] 65-99 High 0 NT-pro BNP 367 [facility] <450 Normal 0 iron saturation percent, serum 17 % (CALC) [facility] 16-45 Normal 0 iron binding capacity, total 363 MCG/DL (CALC) [facility] 250-450 Normal 0 iron, serum 60 ug/dL [facility] 45-160 Normal 0 cholesterol, non-HDL, total 80 MG/DL (CALC) [facility] <130 Normal 0 cholesterol/HDL ratio, serum, percent 2.2 (calc) [facility] <5.0 Normal 0 LDL cholesterol, serum 60 MG/DL (CALC) [facility] Normal 0 triglyceride, serum, fasting 121 mg/dL [facility] <150 Normal 0 HDL cholesterol, serum 66 mg/dL [facility] > OR = 50 Normal 0 cholesterol, serum 146 mg/dL [facility] <200 Normal HISTORY OF MEDICATION USE Medication Status Instructions Dates Provider Indications Com ments losartan 25 mg tablet active TAKE 1 TABLET BY MOUTH EVERY DAY 6 Srini Ahmedzaswapnil aspirin 81 mg tablet,delayed release (DR/EC) active TAKE 1 TABLET BY MOUTH ONCE A DAY POST CARDIAC CATH ORDERS 8 Srini Elizabethzai clopidogrel 75 mg tablet active TAKE 1 TABLET BY MOUTH EVERY DAY 8 Srini Shipleymedzai nitroglycerin 0.4 mg tablet, sublingual active 1 tablet under tongue as directed 1 tablet under tongue for chest pain. May repeat every 5 minutes if still having chest pain- to max of 3 tablets per episode.If no relief after 3rd dose, go to ER 5 Srini Ahmedzai Farxiga 5 mg tablet active TAKE 1 TABLET DAILY 5 Srini Shipleymedzai atorvastatin 80 mg tablet completed - 5 Srini Ahmedzai Farxiga 5 mg tablet completed - 5 Srini Ahmedzai aspirin 81 mg tablet,delayed release (DR/EC) completed - 8 Srini Murray rosuvastatin 40 mg tablet active Srini Murray clopidogrel 75 mg tablet completed - 8 rSini uMrray metformin 500 mg tablet completed - 5 Srini Murray metformin completed - 5 Srini Murray rosuvastatin completed - 5 Srini Murray SOCIAL HISTORY Date Observation Value Provider smoking status Never smoker Srini Murray smoking status Never smoker Srini Murray smoking status Never smoker Srini Murray FUNCTIONAL STATUS Date Observation Value Provider HRA, CV Assess/Plan, Angina (inactive) Management Plan continue current therapy Srini Murray HRA, CV Assess/Plan, Angina (inactive) Management Plan continue current therapy Srini Murray INSURANCE PROVIDERS Payer name Policy type / Coverage type [facility] alliance party ID HUMANA O O [id number] ADVANCE DIRECTIVES Name Date DISCUSSED - NO DECISION MADE TREATMENT PLAN Date Name Performer Cardiology: H er updated medication list for this problem includes: Losartan 25 Mg Tablet (Losartan) ..... Take 1 tablet by mouth every day Aspirin 81 Mg Tablet,delayed Release (dr/ec) (Aspirin) ..... Take 1 tablet by mouth once a day post cardiac cath orders Farxiga 5 Mg Tablet (Dapagliflozin propanediol) ..... Take 1 tablet daily Orders: C omplete Echo (83190) Cruz Dillon MD Cardiology:This visi t has been a part of the consistent, comprehensive, and ongoing management of the chronic medical condition(s) listed above for the patient. Her updated medication list for this problem includes: Aspirin 81 Mg Tablet,delayed Release (dr/ec) (Aspirin) ..... Take 1 tablet by mouth once a day post cardiac cath orders Clopidogrel 75 Mg Tablet (Clopidogrel) ..... Take 1 tablet by mouth every day Nitroglycerin 0.4 Mg Tablet, Sublingual (Nitroglycerin) ..... 1 tablet under tongue as directed 1 tablet under tongue for chest pain. may repeat every 5 minutes if still having chest pain- to max of 3 tablets per episode.if no relief after 3rd dose, go to er Orders: C omplete Echo (39982) Cruz Dillon MD Cardiology:This visi t has been a part of the consistent, comprehensive, and ongoing management of the chronic medical condition(s) listed above for the patient. Her updated medication list for this problem includes: Aspirin 81 Mg Tablet,delayed Release (dr/ec) (Aspirin) ..... Take 1 tablet by mouth once a day post cardiac cath orders Clopidogrel 75 Mg Tablet (Clopidogrel) ..... Take 1 tablet by mouth every day Nitroglycerin 0.4 Mg Tablet, Sublingual (Nitroglycerin) ..... 1 tablet under tongue as directed 1 tablet under tongue for chest pain. may repeat every 5 minutes if still having chest pain- to max of 3 tablets per episode.if no relief after 3rd dose, go to er Orders: C BC (INCLUDES DIFF/PLT) (6399) F ERRITIN (457) I JACOB AND TOTAL IRON BINDING CAPACITY (7573) C OMPREHENSIVE METABOLIC PANEL, W/EGFR (27686) L IPID PANEL (7600) H EMOGLOBIN A1c (496) P ROBNP, N TERMINAL (61230) Cruz Dillon MD Cardiology: H er updated medication list for this problem includes: Losartan 25 Mg Tablet (Losartan) ..... Take 1 tablet by mouth every day Aspirin 81 Mg Tablet,delayed Release (dr/ec) (Aspirin) ..... Take 1 tablet by mouth once a day post cardiac cath orders Farxiga 5 Mg Tablet (Dapagliflozin propanediol) ..... Take 1 tablet daily Orders: C BC (INCLUDES DIFF/PLT) (6399) F ERRITIN (457) I JACOB AND TOTAL IRON BINDING CAPACITY (7573) C OMPREHENSIVE METABOLIC PANEL, W/EGFR (11554) L IPID PANEL (7600) H EMOGLOBIN A1c (496) P ROBNP, N TERMINAL (15909) Srini Murray Cardiology: H er updated medication list for this problem includes: Aspirin 81 Mg Tablet,delayed Release (dr/ec) (Aspirin) ..... Take 1 tablet by mouth once a day post cardiac cath orders Clopidogrel 75 Mg Tablet (Clopidogrel) ..... Take 1 tablet by mouth every day Nitroglycerin 0.4 Mg Tablet, Sublingual (Nitroglycerin) ..... 1 tablet under tongue as directed 1 tablet under tongue for chest pain. may repeat every 5 minutes if still having chest pain- to max of 3 tablets per episode.if no relief after 3rd dose, go to er Orders: C BC (INCLUDES DIFF/PLT) (6399) F ERRITIN (457) I JACOB AND TOTAL IRON BINDING CAPACITY (7573) C OMPREHENSIVE METABOLIC PANEL, W/EGFR (49689) L IPID PANEL (7600) H EMOGLOBIN A1c (496) P ROBNP, N TERMINAL (84620) [facility] Cardiology: O rders: C BC (INCLUDES DIFF/PLT) (6399) F ERRITIN (457) I JACOB AND TOTAL IRON BINDING CAPACITY (7573) C OMPREHENSIVE METABOLIC PANEL, W/EGFR (50597) L IPID PANEL (7600) H EMOGLOBIN A1c (496) P ROBNP, N TERMINAL (35544) [facility] Cardiology: O rders: C ardiac Rehab (CPT-30165) C omplete Echo (58362) S tress Exercise Cardiolite (CPT-14166) [facility] Cardiology: H er updated medication list for this problem includes: Nitroglycerin 0.4 Mg Tablet, Sublingual (Nitroglycerin) ..... 1 tablet under tongue as directed 1 tablet under tongue for chest pain. may repeat every 5 minutes if still having chest pain- to max of 3 tablets per episode.if no relief after 3rd dose, go to er Aspirin 81 Mg Tablet,delayed Release (dr/ec) (Aspirin) Clopidogrel 75 Mg Tablet (Clopidogrel) Orders: C ardiac Rehab (CPT-72814) C omplete Echo (85507) S tress Exercise Cardiolite (CPT-65265) [facility] Cardiology: O rders: C ardiac Rehab (CPT-44596) The following medications were removed from the medication list: Metformin 500 Mg Tablet (Metformin) Her updated medication list for this problem includes: Farxiga 5 Mg Tablet (Dapagliflozin propanediol) ..... Take 1 tablet daily Farxiga 5 Mg Tablet (Dapagliflozin propanediol) Aspirin 81 Mg Tablet,delayed Release (dr/ec) (Aspirin) Srini Murray Date Name Complete Echo PROBNP, N TERMINAL HEMOGLOBIN A1c LIPID PANEL COMPREHENSIVE METABO LIC PANEL, W/EGFR IRON AND TOTAL IRON BINDING CAPACITY FERRITIN CBC (INCLUDES DIFF/P LT) Cardiac Rehab Stress Exercise Card iolite Complete Echo Cardiac Rehab HISTORY OF PROCEDURES Procedure Date Procedure Name Provider Procedure Notes S tatus Complex e/m visit add on Cruz Dillon MD completed Complex e/m visit add on Cruz Dillon MD completed EKG Cruz Dillon MD completed
--- OUTSIDE RECORDS SUMMARY | 2024-09-28 06:40 | XMS_ITS | Clinical Summary ---
Author Organization [facility] Healthcare Address [address] [place] [id number] Care Team Providers Care Preschool Special Education Teacher Name Role Phone Dima Barber DO Unavailable [phone] Pietro Scott MD Unavailable [phone] Joe Li MD Primary Care Provider [phone] Allergies No known active allergies Medications aspirin [...] from 11/20/2018:Stage IIIC(cT2, cN3b, cM0, G3, ER-, MS-, HER2-) - Signed by Dima Barber DO on 11/22/2018 Malignant neoplasm of right breast in female, estrogen receptor positive 11/19/2018 Cancer Staging:Clinical stage from 11/20/2018:Stage IA(cT1b, cN0(f), cM0, G1, ER+, MS+, HER2-) - Signed by Dima Barber DO on 11/22/2018 Resolved Problems Problem Noted Date Diagnosed Date Resolved Date Persons encountering health services in other specified circumstances 11/24/2018 09/06/2020 Encounters Date Type Department Care Team Description 07/22/2024 Orders Only [facility] [address] [place] [address] Unknown, Notinfile from Last 3 Months Immunizations Immunization Administration Dates Next Due Influenza, Unspecified 04/07/2023,2021,04/10/2021,2019,05/05/2019 Pfizer SARS-CoV-2 Monovalent Vaccination (12+ Yrs) PURPLE 05/06/2022,06/03/2021,09/29/2020,2020 Pneumococcal Conjugate PCV 13 06/30/2016 ZOSTER LIVE 06/30/2013 Surgical History Surgery Date Site/Laterality Comments TONSILLECTOMY/ADENOIDECTOMY TOTAL ABDOMINAL HYSTERECTOMY BREAST BIOPSY Medical History Medical History Date Comments Bronchitis Breast cancer (HCC) Heart attack (HCC) 03/26/2024 Family History Medical History Relation Name Comments Brain cancer Brother No Known Problems Father Breast cancer Maternal Grandmother Breast cancer Mother Relation Name Status Comments Brother Father Maternal Grandmother Mother Social History Tobacco Use Types Packs/Day Years [...] 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 Not on file Not on file Obstetrics History Last Filed Vital Signs Vital Sign Reading [...] 04/11/2023 9:28 AM CDT Plan of Treatment Health Maintenance Due Date Last Done Comments Colon Cancer Screening-Colonoscopy 1950 Depression Screening 1950 Fall Risk Assessment 1950 Hepatitis C Screening 1950 DTaP/Tdap/Td Vaccine (1 - Tdap) 11/26/1959 Hepatitis B Screening 1966 Zoster Vaccine (1 of 2) 08/25/2013 06/30/2013 Well Visit 65+ 2013 Pneumococcal vaccine 65+ (2 of 2 - PPSV23) 08/25/2016 06/30/2016 Covid-19 Vaccine (2023-2 5 season) 2024 05/06/2022, 06/03/2021, 09/29/2020, Additional history exists Osteoporosis Screening-Bone Density Scan 04/05/2024 04/05/2022 Influenza Vaccine (Season Ended) 2025 04/07/2023, 04/22/2022, 04/10/2021, Additional history exists Medical Devices Implanted Type Area Senior Accountant Analyst Device Identifier Shelf Expiration Date Model / [...] SURGICAL PATHOLOGY Routine 07/22/2024 12 :00 AM LICENSED SALES PRODUCER from Last 3 Months Results * (ABNORMAL) [...] 4:44 AM CDT FASTING:YES FASTING: YES Dima HallLucinda Davidi LAB BLOOD ORDERABLES Final R esult Performing Organization Address City/[facility]/ZIP Co de Phone Number [facility] [address] [place] [address] * CEA (09/27/2024 9:46 AM CDT) Pathologist [facility] CEA <2.0 See Note: ng/mL [facility] Comment: Reference Range: Non-Smoker: <2.5 Smoker: [...] AM CDT FASTING:YES FASTING: YES Dima Barber LAB BLOOD ORDERABLES Final R [facility] Performing Organization Address City/[facility] Co de Phone Number BOND-Leslie [address] [facility] [place] [address] * (ABNORMAL) Comprehensive metabolic panel (09/27/2024 9:46 AM CDT) Pathologist [facility] Glucose 121(H) 65 - 99 mg/dL Cross Current[facility]anket Smith Comment: Fasting reference interval For someone without known diabetes, a glucose value between 100 and 125 mg/dL is consistent with prediabetes and should be confirmed with a follow-up test. BUN 12 7 - 25 mg/dL Yumiko Smith Creatinine 0.69 0.60 - 1.00 mg/dL [facility] Smith eGFR 90 > OR = 60 mL/min/1.7 3m2 [facility] BUN/creat ratio SEE NOTE: (calc) Yumiko PediusSanket Smith Comment: Not Reported: BUN and Creatinine are within reference range. Sodium 139 135 - 146 mmol/L [facility] maris Smith Potassium, pl 4.1 3.5 - 5.3 mmol/L [facility] maris Smith Chloride 104 98 - 110 mmol/L Yumiko Fair-S maris Smith CO2 28 20 - 32 mmol/L Yumiko Pedius-S maris Smith Calcium 10.0 8.6 - 10.4 mg/dL Yumiko Pedius-S maris Smith Protein, sr 7.1 6.1 - 8.1 g/dL Yumiko Pedius-S maris Smith Albumin 4.2 3.6 - 5.1 g/dL Yumiko Pedius-S maris Smith GLOBULIN 2.9 1.9 - 3.7 g/dL (calc) [facility] maris Smith Alb/glob ratio 1.4 1.0 - 2.5 (calc) [facility] maris Smith Bilirubin, total 0.5 0.2 - 1.2 mg/dL Yumiko Pedius-S maris Smith Alk phos 50 37 - 153 U/L [facility]ie[facility]anti [facility] AST 18 10 - 35 U/L Ma-papeterieShanti Smith ALT (SGPT) 15 6 - 29 U/L Ma-papeterieShanti Smith Blood 09/27/2024 9:46 AM CDT 09/27/2024 9:47 AM CDT Narrative [facility] - 09/28/2024 4:44 AM CDT FASTING:YES FASTING: YES us Dima Barber DO LAB BLOOD ORDERABLES Final R esult [facility] [address] [place] [address] * Surgical pathology (07/22/2024 12:00 AM LICENSED SALES PRODUCER) Skin, shave biopsy 07/22/2024 07/23/2024 5:10 AM LICENSED SALES PRODUCER Narrative 07/26/2024 1:09 PM LICENSED SALES PRODUCER [facility] results best viewed via link to PDF [facility] [address] [place] [address], [address], [place] [address] [email or web address] Note to Patients: This report may [...] REPORTED: 07/26/2024 Submitting Physician Information: Hanna Farrell [facility], [address] [place] [address], DERMATOPATHOLOGY REPORT RESULTS DIAGNOSIS: A. SKIN, RIGHT [...] ag/dxv ICD-9 ZSD.407 ZSD.1474 Clerical Data A; 73734 B; 31569 C; 77900 The characteristics of special, immunohistochemical, and immunofluorescence stains and in-situ hybridization tests performed by the [facility] were deemed acceptable in ongoing quality improvement manager measures and in compliance with regulations drawn from the Clinical Laboratory Improvement Act tn2017 (CLIA '88). Control reactions for all stains performed were deemed adequate and appropriate by a pathologist prior to evaluation of patient tissue. Some diagnoses were rendered with the assistance of laboratory-developed tests utilizing analyte-specific reagents; the performance characteristic of these tests were determined by [facility] and are not cleared or approved by the [place] Food an Drug administration. Laboratory developed test may only be performed in a facility that is certified by the [facility] as a high-complexity laboratory under CLIA '88. These tests are used for clinical purposes and are not investigational. us Notinfile Unknown LAB PATHOLOGY ORDERABLES Final Result from Last 3 Months Insurance [employer] CHOICE MEDICARE PPO Care Teams Preschool Special Education Teacher Relationship Specialty Start Date End Date Joe Li MD [address] [place] [id number] PCP - General Internal Medicine 10/10/23 Dima Barber DO [address] [place] [id number] Medical Oncologist/General Car Yard Supervisor Hematology and Oncology 12/09/18 Pietro Scott MD [address] [place] [address] Referring Physician Radiation Oncology 12/13/19
--- OUTSIDE RECORDS SUMMARY | 2024-09-28 06:40 | XMS_ITS | Clinical Summary ---
Author Organization [facility] Address [address] [place] [address] Care Team Providers Care Shoe Repairer Helper Name Role Phone Unavailable Primary Care Provider Unavailabl e Social History Tobacco Use Types Packs/Day Years Used Date Smoking Tobacco: Never Assessed Comments Unknown Sex and Gender Information Value Date Recorded Sex Assigned at Not on file Legal Sex Female 6:25 PM CDT Gender Identity Not on file Sexual Orientation Not on file Plan of Treatment Health Maintenance Due Date Last Done Comments Colorectal Cancer Screening Colonoscopy (10 Years) 1950 Hepatitis C 1966 DTaP, Tdap and Td Vaccines ( 1 - Tdap) 11/26/1967 Zoster Vaccines (1 of 2) 1998 Dexa Scan (General) 2013 Pneumococcal Vaccine: 65+ Ye ars (1 of 1 - PCV) 2013 RSV Immunization or 60+ Years (1 - 1-dose 75+ series) 11/26/2023 COVID-19 Vaccine ( - 2023-2 5 season) 2024 Influenza Adult (#1) 2024 Meningococcal B Vaccine Aged Out No l onger eligible based on patient's age to complete this topic Meningococcal Vaccine Aged Out No yvonne kimberly eligible based on patient's age to complete this topic RSV Immunizations Under 20 Months Aged Out No longer eligible based on patient's age to complete this topic
--- OUTSIDE RECORDS SUMMARY | 2024-09-28 06:40 | XMS_ITS | Data Portability ---
Author Organization [place] [facility], Main Office Address [address] [place] [address] Care Team Providers Care Mail Carrier And Clerk Name Role Phone BARAK LI Primary Care Provider BARAK LI Referring Provider [phone] Assessment Encounter Date Assessment Date Assessment LastModified by Organization Details LastModified Time 12/09/2022 12/09/2022 Increase rosuvastatin to 20 check blood work before next visit regular walking targets for A1c blood pressure an LDL discussed follow-up 4-6 months [email or web address] Not available 12/14/2022 21:07:39 04/07/2023 04/07/2023 Try to get G LP 1 agent diagnosis discussed blood work discussed follow-up 4 weeks if gets injectable 4 months of not [email or web address] Not available 04/07/2023 22:08:34 Plan of Treatment Reminders Order Date Submit Date Provider Last Modified By Organization Details Last Modified Time Details Appointments None recorded. Lab lipid panel, serum 2022 023 [facility], [address] , [place], [address], 14:44:52 CMP, serum or plasma 2022 023 [facility], [address] , [place], [address], 14:56:30 HbA1c (hemoglobin A1c), blood 2022 023 [facility], [address] , [place], [address], 14:56:30 albumin/cre atinine, mass ratio, urine 2022 023 [facility], [address], [place], [address], 10:11:05 Referral None recorded. Procedures None recorded. Surgeries None recorded. Imaging None recorded. Medication Orders Wegovy 0.25 mg/0.5 mL subcutaneou s pen injector [address]/Pharmacy #[id number], [address], [place], [address], 3 16:27:46 Wegovy 0.5 mg/0.5 mL subcutaneou s pen injector [address]/Pharmacy #[id number], [address], [place], [address], 3 16:27:46 Crestor 20 mg tablet [address]/Pharmacy #[id number], [address], [place], [address], 13:49:59 Patient TargetsNo targets recorded. Patient InstructionsNo instructions recorded. Reason for Referral None Reported. Results Created Date Observation Date Name Description Value Unit Range Abnormal Flag Note LastModifiedBy Organization Detail LastModifiedTime 10/17/19 22 10/16/2021 COLOG UARD cologuard result cancel led - order d not applic able Not Available [facility] (Cologuard Orders Only) [address], [place], [address], 10/16/2021 06:37:43 11/28/1911/27/2021 XR, chest No observ ation record ed. [id number] [facility] Orders [address] [facility], [place], [address], 08/28/2022 05:03:39 11/28/19 22 11/27/2021 XR, chest , 2 [facility] [address] [place] [address] Georgie pollock Name: BHARGAV GARDINER Access ion #: [id number] Sex: F : 1950 7 Locati on: Attend ing Physic ida: FREDY LI Orderi ng Physic ida: FREDY LI Exam Date: 12:59 PM Exam Name: XR CHEST 2V Admitt ing Diagno sis(es ): RADIOL OGY REPORT - FINAL EXAM: XR CHEST 2V HISTOR Y: ACUTE COUGH COMPAR KEEGAN: 2018 TECHNI QUE: Two views of the chest were perfor med. FINDIN GS: No pneumo thorax , consol idativ e infilt rates, pleura l effusi ons, or pulmon barbara edema. The heart is not enlarg ed. Centra l port cathet er is been remove d. Calcif icatio n of the anteri or longit udinal ligame nt is noted, correl ate for dish versus ankylo sing spondy losis. Right mastec ilene residu als and lymph node dissec tion noted. Page 1 of 2 [facility] Georgie pollock Name: BHARGAV GARDINER Access ion #: [id number] Sex: F : 1950 7 Exam Date: 12:59 PM Exam Name: XR CHEST 2V Admitt ing Diagno sis(es ): IMPRES FRANCOISE: Lung harden are clear, see above. Create d and electr onical ly signed by: Dima fuentes MD Signed Date: 3:03 PM (CT) Dictat ed by: Dima fuentes MD DD: 3:03 PM (CT) DT: 3:03 PM (CT) Page 2 of 2 [id number] [facility] (Imaging) [address] [place], [address], 08/28/2022 05:03:39 04/05/20 22 04/05/2022 DEXA, axial skele ton No observ ation record ed. [id number] [facility], [place], [address], 08/28/2022 05:03:39 04/05/20 22 04/05/2022 CT, chest , w/ contr ast No observ ation record ed. [id number] [facility], [place], [address], 08/28/2022 05:03:39 10/05/19 23 10/04/2022 CT, chest , w/ contr ast No observ ation record ed. [email or web address], [address], 12/09/2022 14:22:44 04/04/20 23 04/04/2023 CT, chest , w/ contr ast No observ ation record ed. [email or web address] [address], [place], [address], 04/10/2023 14:07:33 10/03/19 24 10/03/2023 CT, chest , w/o contr ast No observ ation record ed. [email or web address] [address], [address], 10/04/2023 14:46:25 Result Notes None recorded. Problems Name Problem SNOMED Code Status Onset Date Resolution Date Notes Provider Name and Address Organization Details Recorded Time Overweight 663405182 Active 2022 Not Available [facility] 3 08:06:50 Type 2 diabetes mellitus without complication 351172732 Active 2022 Not Available [facility] 3 08:06:50 Acute folliculitis 243258682 Active Not Available [facility] 3 08:06:50 Chronic back pain 114491566 Active Not Available [facility] 3 08:06:50 Venous insufficiency of leg 342823569 Active Not Available [facility] 3 08:06:50 Malignant tumor of breast 125666517 Active 2020 Not Available [facility] 3 08:06:50 Disorder of ear 14356236 Active 2021 Not Available [facility] 3 08:06:50 Osteopenia 368992692 Active 2021 Not Available [facility] 3 08:06:50 Bronchitis 26504682 Active 2021 Not Available [facility] 3 08:06:50 Dyslipidemia 347974278 Active Not Available [facility] 3 08:06:50 Uncontrolled type 2 diabetes mellitus 735276710 Active Not Available [facility] 3 08:06:50 Anxiety 80426259 Active 2018 Not Available [facility] 3 08:06:50 Cough 70465351 Active 2021 Not Available [facility] 3 08:06:50 Upper respiratory infection 61644821 Active 2021 Not Available [facility] 3 08:06:50 Acute upper respiratory infection 51339084 Active 2021 Not Available [facility] 3 08:06:50 Skin lesion 64066067 Active 2021 Not Available [facility] 3 08:06:50 Problem Notes None recorded. Procedures Surgical History Date Name Laterality Status Provider Name and Address Organization Details Recorded Time 07/16/19 23 excision of basal cell carcinoma completed Not Available [facility] 08/28/2022 04:42:31 11/26/19 19 Insert tunneled cv cath completed Not Available [facility] 08/28/2022 04:42:31 06/11/10 19 excision of bilateral breasts completed Not Available [facility] 08/28/2022 04:42:31 Cataract Surgery completed Not Available [facility] 08/28/2022 04:42:31 [facility]ste[facility]/28[facility] 04:42:31 Imaging Results Imaging Date Name Status LastModified by Organiz ation Details LastModified Time 11/27/2021 XR, chest completed [id number] 026 [facility] Add On Lab Orders [address] [place], [address], 08/28/2022 05:03:39 11/27/2021 XR, chest, 2 view completed [id number] [facility] (Imaging) [address] [place], [address], 08/28/2022 05:03:39 04/05/2022 DEXA, axial skeleton completed [id number], [address], 08/28/2022 05:03:39 04/05/2022 CT, chest, w/ contrast completed [id number] [address], [address], 08/28/2022 05:03:39 10/04/2022 CT, chest, w/ contrast completed [address], [address], 12/09/2022 14:22:44 04/04/2023 CT, chest, w/ contrast completed [address], [address], 04/10/2023 14:07:33 10/03/2023 CT, chest, w/o contrast completed [email or web address], [address], 10/04/2023 14:46:25 Procedure Notes None recorded. Medical Equipment None Reported. Allergies No known drug allergies Medications Name Sig Start Date Stop Date Status Note LastModified by Organization Details LastModified Time amoxicillin 500 mg capsule TAKE 1 CAPSULE BY MOUTH EVERY 12 HOURS 12/17 completed Not Available Not Available Not Available atorvastati n 40 mg tablet active Not Available Not Available Not Available metformin 500 mg tablet active Not Available Not Available Not Available doxycycline hyclate 100 mg capsule Take 1 capsule twice a day by oral route for 10 days. active Not Available Not Available No t Available paroxetine 10 mg tablet TAKE 1 TABLET BY MOUTH EVERY DAY active Not Available Not Available No t Available atorvastati n 20 mg tablet active Not Available Not Available Not Available azithromyci n 250 mg tablet TAKE 2 TABLETS BY MOUTH TODAY, THEN TAKE 1 TABLET DAILY FOR 4 DAYS 04/22 completed Not Available Not Available Not Available aspirin 325 mg tablet Take 1 tablet every day by oral route. 2020 active Not Available Not Available Not Avai lable ofloxacin 0.3 % eye drops 02/22 completed Not Available Not Available Not Available ondansetron HCl 4 mg tablet TAKE 1 TABLET 3 TIMES A DAY BY MOUTH NEEDED. 01/06 completed Not Available Not Available Not Available prednisone 20 mg tablet 08/14 completed Not Available Not Available Not Available alendronate 70 mg tablet 10/11 completed Not Available Not Available Not Available meclizine 12.5 mg tablet 06/21 completed Not Available Not Available Not Available acetaminoph en 300 mg-codeine 30 mg tablet 01/06 completed Not Available Not Available Not Available capecitabin e 500 mg tablet active Not Available Not Available Not Available sulfamethox azole 800 mg-trimetho prim 160 mg tablet Take 1 tablet every 12 hours by oral route for 7 days. 01/06 completed Not Available Not Available Not Available ketorolac 0.5 % eye drops 02/22 completed Not Available Not Available Not Available oxycodone-a cetaminophe n 5 mg-325 mg tablet 01/06 completed Not Available Not Available Not Available OneTouch Ultra Test strips USE TO TEST BID AND PRN 01/06 completed Not Available Not Available Not Available meclizine 25 mg tablet 12/23 completed Not Available Not Available Not Available diazepam 2 mg tablet TAKE 1/2 OF A TABLET BY MOUTH TWICE A DAY active Not Available Not Available No t Available benzonatate 100 mg capsule TAKE 1 CAPSULE BY MOUTH THREE TIMES A DAY NEEDED FOR COUGH 10/31 completed Not Available Not Available Not Available cephalexin 500 mg capsule TAKE 1 CAPSULE BY MOUTH TWICE A DAY FOR 7 DAYS 08/06 completed Not Available Not Available Not Available pantoprazol e 40 mg tablet,ziggy yed release 01/06 completed Not Available Not Available Not Available dexamethaso ne 4 mg tablet 10/06 /2020 completed Not Available Not Available Not Available ergocalcife rol (vitamin D2) 1,250 mcg (50,000 unit) capsule Take 1 capsule every week by oral route. active Not Available Not Available No t Available methylpredn isolone 4 mg tablets in a dose pack TAKE 6 TABLETS ON DAY 1 DIRECTED ON PACKAGE AND DECREASE BY 1 TAB EACH DAY FOR A TOTAL OF 6 DAYS 04/22 completed Not Available Not Available Not Available ondansetron 4 mg disintegrat ing tablet 06/21 completed Not Available Not Available Not Available cefdinir 300 mg capsule Take 1 capsule twice a day by oral route for 7 days. active Not Available Not Available No t Available fluticasone propionate 50 mcg/actuati on nasal spray,suspe nsion INSTILL 2 SPRAYS INTO THE NOSTRILS ONCE DAILY 08/06 completed Not Available Not Available Not Available amoxicillin 875 mg-potassiu m clavulanate 125 mg tablet TAKE 1 TABLET BY MOUTH TWICE A DAY 10/31 completed Not Available Not Available Not Available rosuvastati n 5 mg tablet TAKE 1 TABLET DAILY 09/08 completed Not Available Not Available Not Available rosuvastati n 10 mg tablet TAKE 1 TABLET BY MOUTH EVERY DAY 04/07 completed Not Available Not Available Not Available rosuvastati n 20 mg tablet TAKE 1 TABLET BY MOUTH EVERY DAY active Not Available Not Available No t Available nitrofurant oin monohydrate /macrocryst als 100 mg capsule 02/22 completed Not Available Not Available Not Available Vitamin C QD 01/06 completed Not Available Not Available Not Available echinacea QD 05/26 completed Not Available Not Available Not Available Oysco 500/D 2021 active Not Available Not Available Not Avai lable multivitami n 2020 active Not Available Not Available Not Avai lable OneTouch Ultra2 Meter kit USE TO TEST BID AND PRN 01/06 completed Not Available Not Available Not Available ProAir HFA 90 mcg/actuati on aerosol inhaler INHALE 2 PUFFS BY MOUTH EVERY 4 HOURS active Not Available Not Available No t Available Durezol 0.05 % eye drops 02/22 completed Not Available Not Available Not Available OneTouch Delica Lancets 33 gauge USE TO TEST BID AND PRN 01/06 completed Not Available Not Available Not Available risedronate 35 mg tablet,ziggy yed release TAKE 1 TABLET WEEKLY active Not Available Not Available No t Available D3 DOTS 50 mcg (2,000 unit) tablet Take by oral route. 2021 active Not Available Not Available Not Avai lable Accu-Chek FastClix Lancing Device USE TO TEST BID AND PRN 01/06 completed Not Available Not Available Not Available [place] DM 7.5 mg-7.5 mg/5 mL oral liquid TAKE 20 ML EVERY 6-8 HOURS NEEDED COUGH/CON GESTION 12/17 completed Not Available Not Available Not Available Centrum Silver Women 01/06 completed Not Available Not Available Not Available Wegovy 0.25 mg/0.5 mL subcutaneou s pen injector INJECT 0.25MG WEEKLY FOR 4WKS THEN GO TO 0.5MG WEEKLY active Not Available Not Available No t Available Wegovy 0.5 mg/0.5 mL subcutaneou s pen injector INJECT 0.5MG WEEKLY FOR 4WKS THEN GO TO 1MG WEEKLY FOR 4WKS active Not Available Not Available No t Available Paxlovid 300 mg (150 mg x 2)-100 mg tablets in a dose pack TAKE PER PACKAGE INSERT active Not Available Not Available No t Available Vitals Date Recorded Body mass index (BMI) Body height Heart rate Body temperature Body weight Systolic blood pressure Diastolic blood pressure Provider Name and Address Organization Details Last Updated DateTime 2 26.2 kg/m2 151.13 cm 82 /min 97.6 [degF] 03717.1 9 g 130 mm[Hg] 80 mm[Hg] Not Available [facility] 3 04:46:44 Date Recorded Body mass index (BMI) Body height Heart rate Body temperature Body weight Systolic blood pressure Diastolic blood pressure Provider Name and Address Organization Details Last Updated DateTime 2 25.8 kg/m2 151.13 cm 71 /min 98 [degF] 22379.0 1 g 126 mm[Hg] 84 mm[Hg] Not Available [facility] 3 04:46:44 Date Recorded Body mass index (BMI) Body height Heart rate Body temperature Body weight Systolic blood pressure Diastolic blood pressure Provider Name and Address Organization Details Last Updated DateTime 3 27 kg/m2 151.13 cm 72 /min 98.5 [degF] 00605.5 6 g 118 mm[Hg] 68 mm[Hg] Not Available [facility] 3 04:46:44 Date Recorded Body height Body weight Body temperature Heart rate Oxygen saturation Oxygen saturation in Arterial blood by Pulse oximetry Systolic blood pressure Diastolic blood pressure Provider Name and Address Organization Details Last Updated DateTime 3 151.13 cm 78709.9 3 g 97.2 [degF] 69 /min 98 % 98 % 112 mm[Hg] 68 mm[Hg] Thelma Blackwood RN [place] - [facility] 3 11:39:28 Date Recorded Body height Body mass index (BMI) Body weight Body temperature Heart rate Systolic blood pressure Diastolic blood pressure Provider Name and Address Organization Details Last Updated DateTime 3 151.13 cm 27.6 kg/m2 96075.3 4 g 97.9 [degF] 76 /min 126 mm[Hg] 76 mm[Hg] Chayo andrade RN [place] - [facility] 3 14:13:16 Social History Question Answer Notes LastModified by Organization Details LastModified Time Tobacco Smoking Status Never Smoker Not Available [facility] 08/28/2022 04:39:28 Do You Have An Advance Directive? No MIGRATION.0301 [id number] Information not available 08/28/2022 What Is Your Level Of Alcohol Consumption? None MIGRATION.0301 355019 Information not available 08/28/2022 Are You Blind Or Do You Have Difficulty Seeing? No MIGRATION.0301 979563 Information not available 08/28/2022 What Is Your Level Of Caffeine Consumption? Moderate MIGRATION.0301 227016 Information not available 08/28/2022 How Much Tobacco Do You Chew? None MIGRATION.0301 101816 Information not available 08/28/2022 In The 14 Days Before Symptom Onset, Have You Had Close Contact With A Laboratory-conf irmed COVID-19 While That Case Was Ill? No MIGRATION.0301 839259 Information not available 08/28/2022 In The 14 Days Before Symptom Onset, Have You Had Close Contact With A Person Who Is Under Investigation For COVID-19 While That Person Was Ill? No MIGRATION.0301 618106 Information not available 08/28/2022 Are You Currently Employed? No Information not available 04/07/2023 Are You Deaf Or Do You Have Serious Difficulty Hearing? No MIGRATION.0301 056581 Information not available 08/28/2022 What Type Of Diet Are You Following? REGULAR MIGRATION.0301 599140 Information not available 08/28/2022 Which Illicit Or Recreational Drugs Have You Used? Marijuana Very Occasional MIGRATION.0301 996266 Information not available 08/28/2022 Do You Or Have You Ever Used E-cigarettes Or Vape? Never Used Electronic Cigarettes MIGRATION.0301 834017 Information not available 08/28/2022 What Is The Highest Grade Or Level Of School You Have Completed Or The Highest Degree You Have Received? [id number] MIGRATION.0301 787269 Information not available 08/28/2022 What Is Your Occupation? [employer]-retired MIGRATION.0301 224841 Information not available 08/28/2022 Have There Been Any Changes To Your Family Or Social Situation? No MIGRATION.0301 329493 Information not available 08/28/2022 What Is The Fluoride Status Of Your Home? Non-fluoridated MIGRATION.0301 329588 Information not available 08/28/2022 Are There Any Guns Present In Your Home? Yes MIGRATION.0301 585349 Information not available 08/28/2022 Do You Use Insect Repellent Routinely? No MIGRATION.0301 179099 Information not available 08/28/2022 Where Do You Live? SingleLevelHouse MIGRATION.0301 078719 Information not available 08/28/2022 Do You Have A Medical Power Of Data Analysis Manager? No MIGRATION.0301 893715 Information not available 08/28/2022 What Was The Date Of Your Most Recent Tobacco Screening? 04/07/2023 Information not available 04/07/2023 Do You Have Any Pets? No MIGRATION.0301 422878 Information not available 08/28/2022 What Is Your Relationship Status? MIGRATION.0301 491139 Information not available 08/28/2022 Do You Use Your Seat Belt Or Car Seat Routinely? Yes MIGRATION.0301 945966 Information not available 08/28/2022 Do You Have Smoke And Carbon Monoxide Detectors In Your Home? Yes MIGRATION.0301 662670 Information not available 08/28/2022 Are You Passively Exposed To Smoke? No MIGRATION.0301 073012 Information not available 08/28/2022 Do You Or Have You Ever Used Smokeless Tobacco? Never Used Smokeless Tobacco MIGRATION.0301 187354 Information not available 08/28/2022 Are There Any Smokers In Your House? No MIGRATION.0301 914538 Information not available 08/28/2022 How Much Tobacco Do You Smoke? No MIGRATION.0301 155460 Information not available 08/28/2022 What Types Of Sporting Activities Do You Participate In? None MIGRATION.0301 435961 Information not available 08/28/2022 Do You Feel Stressed (tense, Restless, Nervous, Or Anxious, Or Unable To Sleep At Night)? [id number] MIGRATION.0301 815205 Information not available 08/28/2022 Do You Use Any Illicit Or Recreational Drugs? Yes MIGRATION.0301 401539 Information not available 08/28/2022 Do You Use Sunscreen Routinely? No MIGRATION.0301 911817 Information not available 08/28/2022 Has Tobacco Cessation Counseling Been Provided? No Not Needed-never Smoked MIGRATION.0301 785144 Information not available 08/28/2022 How Many Years Have You Smoked Tobacco? 0 MIGRATION.0301 990036 Information not available 08/28/2022 Have You Recently Traveled Abroad? No MIGRATION.0301 214138 Information not available 08/28/2022 Have You Used IV Drugs? No MIGRATION.0301 237482 Information not available 08/28/2022 Do You Have Any Dietary Restrictions? No MIGRATION.0301 119788 Information not available 08/28/2022 Do You Or Have You Ever Used Any Other Forms Of Tobacco Or Nicotine? No MIGRATION.0301 481728 Information not available 08/28/2022 Sex: Female Functional Status Question Answer Note LastModified by Organizat ion Details LastModified Time Do you have difficulty walking or climbing stairs? No MIGRATION.1305280 026 Information not available 08/28/2022 Do you have transportation difficulties? No MIGRATION.9640972 026 Information not available 08/28/2022 Are you able to walk? YESWOREST MIGRATION.0533178 026 Information not available 08/28/2022 Do you have difficulty doing errands alone? No MIGRATION.2700152 026 Information not available 08/28/2022 Are you able to care for yourself? Yes MIGRATION.9364909 026 Information not available 08/28/2022 Do you have difficulty dressing or bathing? No MIGRATION.2716810 026 Information not available 08/28/2022 What is your exercise level? Occasional MIGRATION.4646080 026 Information not available 08/28/2022 Mental Status Question Answer Note LastModified by Organizat ion Details LastModified Time Do you have difficulty concentrating, remembering or making decisions? No MIGRATION.[id number] 6 Information not available 08/28/2022 Family History Relationship Description Onset Age of this Age Resolved Age Notes LastModified by Organization Details LastModified Time Maternal Grandmother Diabetes mellitus MIGRATION.057 [id number] Not available 08/28/2022 04:42:35 Father Malignant neoplastic disease MIGRATION.609 [id number] Not available 08/28/2022 04:42:35 Mother Malignant tumor of breast MIGRATION.359 8465650 Not available 08/28/2022 04:42:35 Maternal Aunt Malignant tumor of breast MIGRATION.045 [id number] Not available 08/28/2022 04:42:35 Medical History Condition Response BLINDNESS N NERVE DISEASE N RHEUMATIC FEVER N BLADDER PROBLEMS N KIDNEY STONES N MRSA N OTHER # 1 N POLIO N LUNG DISEASE/DISORDER N RADIATION / CHEMOTHERAPY N COPD N Other # 2 N BLOOD DISEASES N SURGERY N EAR OR HEARING PROBLEMS N MUMPS N BOWEL PROBLEMS N DEPRESSION (INCLUDING POST ) N STROKE/TIA N ULCERS N BENIGN PROSTATIC HYPERPLASIA N MEASLES N MYOCARDIAL INFARCTION N OBESITY N GERD/NAUSEA N ANEURYSM N URINARY/BLADDER/KIDNEY PROBLEMS N CORONARY ARTERY DISEASE (CAD) N ADDICTION CONCERNS N Impotence N ENDOMETRIOSIS N USE OF BLOOD THINNERS N SKIN PROBLEMS N GASTROINTESTINAL DISORDER N PERIPHERAL VASCULAR DISEASE N MUSCLE,JOINT OR BONE PROBLEMS N GASTROINTESTINAL BLEEDING N BLOOD CLOTS N ASTHMA N CATARACTS N ERECTILE DYSFUNCTION N VARICOSITIES N GI PROBLEMS N Low Testosterone N INFERTILITY N AIDS/HIV N CHEMOTHERAPY / RADIATION N LIVER DISEASE N MALE HYPOGONADISM N HYPERTENSION Y Deficiency N ANXIETY DISORDER Y BLOOD TRANSFUSION N ANEMIA/BLOOD DISORDER N CHRONIC EAR INFECTIONS N BRONCHITIS N TUBERCULOSIS N GLAUCOMA N FOOT PROBLEM N DIVERTICULITIS N SLEEP APNEA N CHICKENPOX N INFECTIOUS DISEASE N PROSTATE N HEART ARRHYTHMIA N INSOMNIA N HIGH CHOLESTEROL / HYPERLIPIDEMIA Y EYE PROBLEMS N HYPERTHYROIDISM N NEUROLOGICAL PROBLEMS N EDEMA N CHRONIC PAIN SYNDROME N HYPOTHYROIDISM N CONSTIPATION N CAROTID BLOCKAGE N BACK / NECK PROBLEMS N HAVE YOU BEEN HOSPITALIZED OR SEEN IN [facility] IN THE PAST YEAR ? N ATHEROSCLEROSIS N BREAST PROBLEMS N DIALYSIS N ECZEMA N OSTEOPOROSIS Y ARTHRITIS N APPENDICITIS N DIABETES, TYPE Y BAD TEETH N ENT N HEARTBURN / REFLUX N AFIB N AUTISM SPECTRUM DISORDER (ASD) N HEPATITIS / LIVER DISEASE N GOUT N SLEEP DISORDER N ALZHEIMER'S DISEASE N Brain Problems N DEMENTIA N HERPES N SEIZURES/EPILEPSY N HEADACHES/MIGRAINES N VASCULAR DISEASE N PACEMAKER N Blood Disorder N DIZZINESS N HEART DISEASE/HEART PROBLEMS N KIDNEY DISEASE N MULTIPLE SCLEROSIS N CANCER: SPECIFY N CARDIAC ARRHYTHMIA N ATRIAL FIBRILLATION N Gall Stones N PULMONARY EMBOLISM N AUTOIMMUNE DISEASE N Gynecological HistoryNo gynecological history recorded. Obstetrics History GPAL:G 0 P 0 0 0 0 Immunizations Vaccine Type Date Status Note Provider Nam e and Address Organization Details Recorded Time SARS-COV-2 (COVID-19) vaccine, UNSPECIFIED 3 completed HANG Flores, [place] - S ID [employer] [facility] 06/17/2023 09:43:01 COVID-19, mRNA, LNP-S, PF, 30 mcg/0.3 mL dose 1 completed Not Available [facility] 08/28/2022 05:02:49 COVID-19, mRNA, LNP-S, PF, 30 mcg/0.3 mL dose 1 completed Not Available [facility] 08/28/2022 05:02:49 COVID-19, mRNA, LNP-S, PF, 30 mcg/0.3 mL dose 1 completed Not Available [facility] 08/28/2022 05:02:49 COVID-19, mRNA, LNP-S, PF, 30 mcg/0.3 mL dose 2 completed Not Available [facility] 08/28/2022 05:02:49 Influenza, high-dose, quadrivalent, PF 2 completed Not Available [facility] 08/28/2022 05:02:49 Influenza, high-dose, quadrivalent, PF 0 completed Not Available [facility] 08/28/2022 05:02:49 Influenza, high-dose, trivalent, PF 8 completed Not Available [facility] 08/28/2022 05:02:49 Influenza, high-dose, trivalent, PF 7 completed Not Available [facility] 08/28/2022 05:02:49 Influenza, high-dose, trivalent, PF 6 completed Not Available [facility] 08/28/2022 05:02:50 Pneumococcal conjugate PCV 13 5 completed Not Available [facility] 08/28/2022 05:02:50 Influenza, split virus, quadrivalent, PF 5 completed Not Available [facility] 08/28/2022 05:02:50 Influenza, split virus, trivalent, preservative 4 completed Not Available [facility] 08/28/2022 05:02:50 Influenza, split virus, trivalent, preservative 3 completed Not Available [facility] 08/28/2022 05:02:50 Influenza, high-dose, quadrivalent, PF 3 completed Barak Li MD [address] [place] [address], [place] [address], [place], [address], [facility] 04/07/2023 22:06:39 Past Encounters Encounter ID Performer Location Encounter Start Date Encounter Closed Date Diagnosis/Indication Diagnosis SNOMED-CT Code Diagnosis ICD10 Code Diagnosis Note [id number] [facility] [address] [place] [address] Ave[address] [address] 10/16/2020 00:00:00 10/22/2020 12:20:46 [id number] [facility] [address] [place], [place] [address]e., [address] [address] 02/26/2021 00:00:00 02/27/2021 22:53:29 [id number] [facility] [address] [address] 05/28/2021 00:00:00 05/31/2021 22:32:55 [id number] [facility] [address] [address] 08/23/2021 00:00:00 08/25/2021 10:16:00 [id number] [facility] [address] [place] [address] 10/31/2021 00:00:00 10/31/2021 21:45:31 [id number] [facility] [address] [place] [address] 1 12/17/2021 00:00:00 12/23/2021 16:56:52 [id number] [facility] [address] [place] [place] [address] 1 04/22/2022 00:00:00 04/23/2022 20:02:37 [id number] [facility] [address] [place] [address] 08/06/2022 00:00:00 08/06/2022 15:37:32 [id number] Barak Li MD [facility] [address] [place] [address] [address] 12/09/2022 11:24:33 12/09/2022 12:07:05 Uncontrolled type 2 diabetes mellitus 712815032 E11.65 Dyslipidemia 772434157 E 78.5 Venous ins ufficiency of leg 504325675 I87.2 [id number] Barak Li MD [facility] [address] [place] [place] [address] 1 04/07/2023 13:49:09 04/07/2023 15:07:55 Administration of influenza vaccine 32277242 Z23 Overweight 036549550 E66 .3 Dyslipidemia 399643491 E 78.5 Type 2 marco betes mellitus without complication 454099306 E11.9 Health Concerns Section Related Observation LastModified by Organization Detai ls LastModified Time None Recorded Concern Status LastModified by Organization Details LastModified Time None Recorded Advance Directives Directive N: Payers Encounter Date Sequence Insurance Name Policy Number Policy Alicea Covered Member ID Alicea Member ID Guarantor Name 12/09/2022 1 [id number] (MEDICARE REPLACEMENT/A DVANTAGE - PPO) Bhargav M Zuleyka [id number] Bhargav Gardiner 04/07/2023 1 [employer] (MEDICARE REPLACEMENT/A DVANTAGE - PPO) Bhargav Syed Zuleyka [id number] Bhargav Gardiner Notes Date Note Type Note Provider Name and Address Organization Details Recorded Time 12/09/2022 text/html Diabetes A1c 6 pointVenous stasis no painDyslipidemia LDL too high Barak Li MD [address], [place], [address], [employer] 12/14/2022 21:07:57 04/07/2023 text/html Diabetes A1c 6 pointVenous stasis no painDyslipidemia LDL too high Barak Li MD [address], [place], [address], [employer] 04/07/2023 22:08:51 OBGyn Episode No OBEpisode recorded.
[2024-09-28 07:10] LABS: Estimated Glomerular Filt Rate > 60
== END 2024-09-28 06:38 | disposition home or self-care (01) ==
PROVIDERS: PCP Internal Medicine; Visit Provider Internal Medicine Medical Oncology
DX: C50.912 Malignant neoplasm of unspecified site of left female breast (principal); Z17.1 Estrogen receptor negative status [ER-]
CPT/HCPCS: 71260; Q9967

== ENCOUNTER 2024-12-14 07:55 | Outpatient (CLI) | payer MEDICARE, SELFPAY ==
--- NOTE | ~2024-12-14 | DEXA_ITS ---
Bone Density Report Name: BHARGAV STORY Age: 74 Sex: Female Ethnicity: White Date of : 1950 Indication: postmenopausal; screening for osteoporosis; height loss; hysterectomy; Referring Provider: Elisabeth, Dima Ojeda Study: Bone densitometry was performed. Exam Date: December 14, 2024 Accession number: [id number] Bone Density: Region BMD T-score Z-score Classification AP Spine(L1-L4) 0.951 -0.9 1.6 Normal Femoral Neck (Left) 0.648 -1.8 0.3 Osteopenia Total Hip (Left) 0.763 -1.5 0.4 Osteopenia Femoral Neck (Right) 0.580 -2.4 -0.3 Osteopenia Total Hip (Right) 0.674 -2.2 -0.4 Osteopenia Total Hip Mean 0.719 -1.9 0.0 Osteopenia World Health Organization criteria for BMD impression classify patients as: Normal (T-score at or above -1.0), Osteopenia (T-score between -1.0 and -2.5), or Osteoporosis (T-score at or below -2.5). 10-year Fracture Risk(1): Major Osteoporotic Fracture 8.7% Hip Fracture 2.7% Reported Risk Factors: [place] (), Neck BMD=0.580, BMI=22.2 (1) FRAX(R) Version 3.08. Fracture probability calculated for an untreated patient. Fracture probability may be lower if the patient has received treatment. Clinical Information Provided by Patient: Has used the following medications: Vitamin D, Calcium Has the following medical conditions: Hysterectomy Patient maximum height was 60 Menopause Age: 48 No regular weight bearing exercise Does not regularly consume dairy products Onset of menses at age 10 Number of children 2 Impression: The patient has low bone mass, based on the Right Femoral Neck T-score. The patient has an estimated ten-year risk of hip fracture of 2.7% and an estimated ten-year risk of major fracture of 8.7%, based on the WHO FRAX algorithm. Discussion: BONE DENSITY IS LOW AT ONE OR MORE SKELETAL SITES. This patient's lowest T-score is low at one or more skeletal sites. It meets the World Health Organization's (WHO) criteria for ?low bone mass? (T-score between -1.0 and -2.5). The patient's 10-year risk of fracture as calculated by FRAX is less than the threshold where pharmacological therapy is recommended by the National Osteoporosis Foundation (NOF). However, all treatment decisions require clinical judgment and consideration of individual patient factors, including patient preferences, comorbidities, previous drug use, risk factors not captured in the FRAX model (e.g., frailty, falls, vitamin D deficiency, increased bone turnover, interval significant decline in bone density) and possible under or overestimation of fracture risk by FRAX. The patient should follow a healthful lifestyle (good nutrition with adequate calcium and vitamin D, and appropriate weight-bearing exercise). Follow-Up: Consider repeating this study in 2 to 3 years to reassess this patient's status, or sooner if there is some new clinical indication. Reported by: DEONTE on 12/14/2024 8:31:00 AM. Reviewed, dictated and finalized at location A.
== END 2024-12-14 07:56 | disposition home or self-care (01) ==
LOC: MICIMG 07:56
PROVIDERS: PCP Internal Medicine; Visit Provider Internal Medicine Medical Oncology
DX: M85.80 Other specified disorders of bone density and structure, unspecified site (principal); C50.912 Malignant neoplasm of unspecified site of left female breast; Z17.1 Estrogen receptor negative status [ER-]
CPT/HCPCS: 77080

== ENCOUNTER 2025-04-01 06:45 | Outpatient (CLI) | payer MEDICARE, SELFPAY ==
--- NOTE | ~2025-04-01 | CT_ITS ---
Exam: CT chest with contrast Clinical History: [Malignant neoplasm of left breast ] Comparison: [ Chest CT 09/28/2024 Technique: Multiple axial CT images of the chest with IV contrast. Sagittal and coronal reformatted images were obtained. FINDINGS: Lungs and pleura: [ Tracheal bronchial tree is patent. No pneumothorax. No pleural effusion. No pulmonary mass. There are a few small patchy and reticular opacities in the lower lungs.] Mediastinum and pulmonary terri: [ No mass or adenopathy.] Axillary/intramammary and supraclavicular: [ No mass or adenopathy.] Heart and great vessels: [ Normal heart size.[ [ No pericardial effusion.] [ No aneurysm.] Chest Wall: [ Unremarkable.] Upper Abdomen: Adrenal glands are stable. Small hiatal hernia. Osseous structures: Hardware in the left humerus and left shoulder with surrounding artifact. Correlate clinically. Bones appear osteopenic. Additional findings: [ None of significance.] IMPRESSION: 1. No pulmonary mass. No pulmonary nodules. 2. No mediastinal or hilar lymphadenopathy identified. 3. No CT evidence for metastatic disease in the chest. Reviewed, dictated and finalized at location Q.
[2025-04-01 07:31] LABS: Estimated Glomerular Filt Rate 48
== END 2025-04-01 06:46 | disposition home or self-care (01) ==
PROVIDERS: PCP Internal Medicine; Visit Provider Internal Medicine Medical Oncology
DX: C50.911 Malignant neoplasm of unspecified site of right female breast (principal); Z17.0 Estrogen receptor positive status [ER+]
CPT/HCPCS: 71260; Q9967